=== PATIENT | male | born 2000 | race African-American/Black ===

== ENCOUNTER 2024-05-02 08:21 | Emergency (ER) | payer SELFPAY ==
[2024-05-02] MEDS ORDERED: Ketorolac Tromethamine 30 MG (1 mL) VIAL ONE (08:56)
[2024-05-02 09:17] LABS: #Basophils 0.06 10x3/uL (0.0-0.2); #Eosinophils 0.32 10x3/uL (0.0-0.5); #Monocytes 0.33 10x3/uL (0.0-1.1); #Neutrophils 1.69 10x3/uL (1.5-8.4); %Basophils 1.6 % (0.0-2.0); %Eosinophils 8.4 % (0.0-6.0); %Lymphocytes 36.6 % (18.0-47.0); %Monocytes 8.7 % (0.0-10.0); %Neutrophils 44.4 % (40.0-75.0); Hematocrit 46.1 % (38.8-50.0); Hemoglobin 15.2 g/dL (13.5-17.5); Mean Corpuscular Hemoglobin 29.5 pg (27.0-33.0); Mean Corpuscular Volume 89.5 fL (81.2-95.1); Mean Platelet Volume 8.9 fL (7.4-10.4); Platelet Count 294 10x3/uL (150-450); RBC Distribution Width 11.9 % (11.5-14.5); Red Blood Cell (RBC) Count 5.15 10x6/uL (4.32-5.72)
[2024-05-02 09:34] LABS: Anion Gap 13 mmol/L (10-20); BUN (Urea Nitrogen) 5 mg/dL (8.9-20.6); Calc. Creatinine Clearance 0 mL/min (70-130); Calcium 9.8 mg/dL (7.8-10.44); Carbon Dioxide 25 mmol/L (22-29); Chloride 106 mmol/L (98-107); Estimated GFR 92; Glucose 91 mg/dL (70-105); Potassium 3.7 mmol/L (3.5-5.1); Sodium 140 mmol/L (136-145)
[2024-05-02 09:40] LABS: Troponin I Less than 0.010 ng/mL (< 0.028)
== END 2024-05-02 10:08 | disposition home or self-care (01) ==
LOC: CSHERS 08:21
DX: R07.81 Pleurodynia (principal); F17.290 Nicotine dependence, other tobacco product, uncomplicated
CPT/HCPCS: 71046; 80048; 84484; 85025; 93005; 96374; J1885

== ENCOUNTER 2024-06-06 07:13 | Emergency (ER) | payer SELFPAY ==
[2024-06-06] MEDS ORDERED: Acetaminophen 325 MG TAB ONE (07:39)
== END 2024-06-06 08:33 | disposition home or self-care (01) ==
LOC: CSHERS 07:13
DX: R09.1 Pleurisy (principal); F17.290 Nicotine dependence, other tobacco product, uncomplicated
CPT/HCPCS: 71046; 93005

== ENCOUNTER 2025-03-26 17:37 | Emergency (ER) | payer SELFPAY | END 2025-03-26 19:43 | disposition home or self-care (01) | LOC: CSHERS 17:37 | DX: M79.672 Pain in left foot (principal); F17.290 Nicotine dependence, other tobacco product, uncomplicated; W19.XXXA Unspecified fall, initial encounter | CPT/HCPCS: 99283 ==